=== PATIENT | male | born 1960 | race Caucasian/White ===

== ENCOUNTER → 2017-07-09 | Outpatient (CLI) | payer OTHER ==
--- NOTE | ~2017-07-09 | ECH ---
Transthoracic Echocardiography Report (TTE) Demographics Patient Name KAMAR LEMUS Date of Study 07/09/2017 D Patient Number [id number] Visit Number [id number] Date of 1960 Room Number Accession Number [id number] Gender Male Age 56 year(s) Referring Davion Weinstein MD Sediment Remediation Consultant Kya Acosta [facility] Physician Physician Interpreting Freda Hope Dater Assembler Physician MD Supervising Ordering Physician Davion Weinstein MD, MD/P Nurse Stress Estimation Manager Conclusions Contractility Score Summary Normal Left Ventricular contractility was noted. Summary Technically adequate exam. The estimated left ventricular ejection fraction is 60-65%. The right atrium is mildly dilated. No significant valvular abnormalities. Procedure Type of Study TTE procedure:Echo Complete SF. Procedure Date Date: 07/09/2017 Start: 01:16 PM Technical Quality: Adequate visualization Indications:Chest pain, Hypertension and Abnormal ECG. Appropriate Use Criteria: 9 Height: 70 inches Weight: 203 pounds BSA: 2.1 m Rhythm: Atrial fibrillation HR: 107 bpm BP: 153/87 mmHg M-Mode/2D Measurements LV Diastolic Dimension: 4.82 cm LV Systolic Dimension: 3.44 cm LV Septum Diastolic: 0.88 cm LV PW Diastolic: 0.86 cm AO Root Dimension: 3.05 cm Cardiac Output: 7.34 l/min LA Dimension: 4.29 cm Cardiac Index: 3.5 l/min*m RV Diastolic Dimension: 3.39 cm LA volume index: 30 ml/m LVOT: 2.16 cm LVOT VTI: 18.73 cm RV Base: 3.7 cm LV Stroke volume: 68.6 ml RV Mid: 2.8 cm LV Stroke volume index: 32.67 ml/m TAPSE: 2.6 cm TDI-S': 14 cm/s Doppler Measurements AV Peak Velocity: 1.4 m/s MV Peak E-Wave: 0.65 m/s AV Peak Gradient: 7.82 mmHg AV Mean Gradient: 4.23 mmHg MV P1/2t: 38.7 msec LVOT Peak Velocity: 1.1 m/s AV Area (Continuity):2.86 cm MV Area (PHT): 5.69 cm PV Peak Velocity: 1.38 m/s PV Peak Gradient: 7.58 mmHg E' Septal Velocity: 0.14 m/s E' Lateral Velocity: 0.16 m/s RA Area: 21.23 cm Findings Left Ventricle Normal left ventricle size and function. Diastolic function indeterminate due to patient's arrhythmia. Right Ventricle Normal right ventricle structure and function. Left Atrium Normal left atrial size. Right Atrium The right atrium is mildly dilated. Mitral Valve Normal mitral valve structure and function. Trivial mitral regurgitation by color Doppler. Aortic Valve The aortic valve is mildly sclerotic. Tricuspid Valve Normal tricuspid valve structure and function. No tricuspid regurgitation by color Doppler. Pulmonic Valve Normal pulmonic valve structure and function. Trivial pulmonic valve regurgitation by color Doppler. Pericardial Effusion No evidence of pericardial effusion. Miscellaneous Visualized portions of the aortic root and ascending aorta appear normal in size. Pleural Effusion No evidence of pleural effusion. Contractility Score LV regional wall motion:(0-Non visualized 1-Normal 2-Hypokinesis 3-Akinesis 4-Dyskinesis 5-Aneurysm) Signature
== END | disposition home or self-care (01) ==
LOC: CARD 13:00
DX: R07.9 Chest pain, unspecified (principal); I10 Essential (primary) hypertension; R94.31 Abnormal electrocardiogram [ECG] [EKG]; I51.7 Cardiomegaly